=== PATIENT | male | born 1940 | race Caucasian/White ===

== ENCOUNTER 2017-08-24 10:14 | Inpatient (IN) | payer OTHER ==
[2017-08-24] VITALS (7 sets, daily range): BP systolic 144–215; BP diastolic 56–556
[~2017-08-24] VITALS: Ht 182.9 cm; Wt 115.0 kg
[2017-08-24 10:57] LABS: BASOPHIL % 0.2 % (0-2); PLATELET COUNT 370 x10^3mcL (130-400); RED CELL DISTRIBUTION WIDTH 13.4 % (11.5-14.5)
[2017-08-24 11:07] LABS: CALCIUM 8.7 mg/dL (8.5-10.1); CARBON DIOXIDE 29.7 mmol/L (21-32); CHLORIDE SERUM 106 mmol/L (98-107); CREATININE SERUM 1.2 mg/dL (0.7-1.3); GLUCOSE SERUM 99 mg/dL (74-106); SODIUM SERUM 141 mmol/L (136-145)
[2017-08-24 11:12] LABS: ALBUMIN 3.4 g/dL (3.4-5.0); ALKALINE PHOSPHATASE 61 U/L (46-116); ALT/SGPT 34 U/L (16-63); AST/SGOT 20 U/L (15-37); BILIRUBIN TOTAL 0.34 mg/dL (0.20-1.00); TOTAL PROTEIN, SERUM 7.3 g/dL (6.4-8.2)
[2017-08-24] MEDS ORDERED: LOSARTAN POTASS50 M1 PO (12:10)
[2017-08-24] MEDS ORDERED: LOPRESSOR50 M1 PO (12:10)
[2017-08-24] MEDS ORDERED: ALTOPREV40 M2 PO (12:10)
[2017-08-24] MEDS ORDERED: ALBUTEROL SULFAT0.51 NEB (12:11)
[2017-08-24 13:16] LABS: CHOLESTEROL/HDL RATIO 3.5; MAGNESIUM 2.1 mg/dL (1.8-2.4); PHOSPHOROUS 3.2 mg/dL (2.5-4.9)
[2017-08-24 13:25] LABS: FREE T4 0.77 ng/dL (0.76-1.46); FREE THYROXINE INDEX 1.9 ug/dL (1.4-4.5); T4(THYROXINE) 5.1 ug/dL (4.7-13.3)
[2017-08-24 13:28] LABS: T3 TOTAL 0.76 ng/mL
[2017-08-24] MEDS ORDERED: NATURAL IRON65 MG PO (13:52)
[2017-08-24] MEDS ORDERED: VITAMIN B121000 MCG PO (13:52)
[2017-08-24 15:23] LABS: IRON 16 ug/dL (65-170); RED BLOOD CELLS 4.27 M/mm3 (4.52-5.90); TOTAL IRON BINDING CAPACITY 461 ug/dL (250-450)
[2017-08-24 19:48] LABS: microscopic required? NO
[2017-08-24 20:09] LABS: UA SPECIFIC GRAVITY 1.015 (1.005-1.035); urine erythrocyte NEGATIVE (NEGATIVE)
[2017-08-24 20:19] LABS: AMPHETAMINE QUAL UR NONE DETECTED (NEG <=1000)
[2017-08-25 06:37] VITALS: BP 165/71
[2017-08-25 06:49] LABS: CALCIUM 8.5 mg/dL (8.5-10.1); CARBON DIOXIDE 26.7 mmol/L (21-32); CHLORIDE SERUM 106 mmol/L (98-107); CREATININE SERUM 1.3 mg/dL (0.7-1.3); GLUCOSE SERUM 141 mg/dL (74-106); MAGNESIUM 2.3 mg/dL (1.8-2.4); PHOSPHOROUS 3.9 mg/dL (2.5-4.9); POTASSIUM SERUM 4.8 mmol/L (3.5-5.1); SODIUM SERUM 140 mmol/L (136-145)
[2017-08-25 06:54] LABS: PLATELET COUNT 345 x10^3mcL (130-400); RED CELL DISTRIBUTION WIDTH 13.4 % (11.5-14.5)
[2017-08-25 06:55] LABS: BASOPHIL % 0 % (0-2)
[2017-08-25 07:30] VITALS: BP 170/79
[2017-08-25 17:28] VITALS: BP 116/70
[2017-08-25 21:26] VITALS: BP 158/65
[2017-08-26] VITALS (7 sets, daily range): BP systolic 122–187; BP diastolic 68–89
[2017-08-26 06:22] LABS: RED CELL DISTRIBUTION WIDTH 13.5 % (11.5-14.5)
[2017-08-26 06:33] LABS: PLATELET COUNT 406 x10^3mcL (130-400)
[2017-08-26 06:51] LABS: CALCIUM 8.5 mg/dL (8.5-10.1); CARBON DIOXIDE 26.7 mmol/L (21-32); CHLORIDE SERUM 105 mmol/L (98-107); CREATININE SERUM 1.3 mg/dL (0.7-1.3); GLUCOSE SERUM 128 mg/dL (74-106); POTASSIUM SERUM 4.4 mmol/L (3.5-5.1); SODIUM SERUM 139 mmol/L (136-145)
[2017-08-26 07:41] LABS: BAND NEUTROPHIL 4 % (0-10); MONOCYTE 3 % (0-7); SEGMENTED NEUTROPHILS 89 % (37-75)
[2017-08-26 07:42] LABS: rbc morphology (normal/abnorm) NORMAL (NORMAL)
[2017-08-27] MEDS ORDERED: MEDDP PO (05:13)
[2017-08-27] MEDS ORDERED: BACO TOP (05:13)
[2017-08-27] MEDS ORDERED: HIBICLENS118 ML TOP (05:13)
[2017-08-27] MEDS ORDERED: LOPRESSOR50 M1 PO (05:13)
[2017-08-27] MEDS ORDERED: LAC PO (05:13)
[2017-08-27] MEDS ORDERED: LEVOFLOXACIN750 M1 PO (05:13)
[2017-08-27] MEDS ORDERED: LOSARTAN POTASS50 M1 PO (05:13)
[2017-08-27 06:07] VITALS: BP 180/84
[2017-08-27 06:14] LABS: PLATELET COUNT 351 x10^3mcL (130-400); RED CELL DISTRIBUTION WIDTH 13.6 % (11.5-14.5)
[2017-08-27 06:26] LABS: CALCIUM 8.3 mg/dL (8.5-10.1); CARBON DIOXIDE 26.7 mmol/L (21-32); CHLORIDE SERUM 104 mmol/L (98-107); CREATININE SERUM 1.3 mg/dL (0.7-1.3); GLUCOSE SERUM 92 mg/dL (74-106); SODIUM SERUM 139 mmol/L (136-145)
[2017-08-27 07:23] VITALS: BP 163/73
[2017-08-27 09:31] VITALS: BP 153/67
[2017-08-27 10:33] VITALS: BP 153/67
[2017-08-27 11:39] LABS: BAND NEUTROPHIL 0 % (0-10); BASOPHIL 0 % (0-2); MONOCYTE 3 % (0-7); SEGMENTED NEUTROPHILS 95 % (37-75); rbc morphology (normal/abnorm) ABNORMAL (NORMAL)
[2017-08-27 11:41] LABS: PLATELET MORPHOLOGY PLATELETS NORMAL
[2017-08-27] MEDS ORDERED: PULMICORT0.25 MG/2 NEB (11:56)
[2017-08-27] MEDS ORDERED: PULMICORT90 MCG/Ac1 IH (12:02)
[2017-08-27] MEDS ORDERED: ALBUTEROL SULFAT0.51 NEB (12:09)
[2017-08-27 14:00] VITALS: BP 153/67
== END 2017-08-27 14:38 | disposition home or self-care (01) | DRG 202 ==
LOC: ED 10:14 → DU 12:59 → MU 12:59 → DU 14:06 → MU 08-25 06:24
PROVIDERS: Emergency Medicine; Family Medicine Sports Medicine; ADMIT Family Medicine
DX: J45.901 Unspecified asthma with (acute) exacerbation (principal); N17.0 Acute kidney failure with tubular necrosis; I16.0 Hypertensive urgency; I25.10 Atherosclerotic heart disease of native coronary artery without angina pectoris; K44.9 Diaphragmatic hernia without obstruction or gangrene; G47.33 Obstructive sleep apnea (adult) (pediatric); D64.9 Anemia, unspecified; E66.9 Obesity, unspecified; Z68.34 Body mass index [BMI] 34.0-34.9, adult; Z95.1 Presence of aortocoronary bypass graft; Z87.891 Personal history of nicotine dependence; Z22.322 Carrier or suspected carrier of Methicillin resistant Staphylococcus aureus
CPT/HCPCS: 82962; 83880; 84439; 94150; J0360; J0696; J1940; J1956; J2543; J2920; J2930; J7030; J7613; J7620; J7644